=== PATIENT | male | born 1965 | race Caucasian/White ===

== ENCOUNTER 2020-12-03 14:58 | Emergency (ER) | payer BC ==
[~2020-12-03] VITALS: Ht 177.8 cm; Wt 80.3 kg
--- NOTE | 2020-12-03 15:25 | NUR ---
Dr Ernandez at bedside. COVID swab sent. Pt aware of plan of care.
--- NOTE | 2020-12-03 16:05 | NUR ---
Pt on monitor. Complains of cold room, provided with warm blankets.
[2020-12-03] MEDS ORDERED: ACETAMINOPHEN 500 MG TABLET ONE (16:44)
--- NOTE | 2020-12-03 16:50 | NUR ---
Pateint up to bathroom with even steady gait.
[2020-12-03] MEDS ORDERED: BAMLANIVIMAB 700 MG in SODIUM CHLORIDE 0.9% 250 ML IVPB ONE (17:00)
[2020-12-03] MEDS ORDERED: FILTER 0.22 MICRON IV ONE (17:00)
--- NOTE | 2020-12-03 17:23 | NUR ---
Started Bamlamivanbab. pt tolerating well.
--- NOTE | 2020-12-03 17:27 | NUR ---
Myself at bedside with 1:1 patient care with antibody infusion.
[2020-12-03] MEDS ORDERED: DEXAMETHASONE 4 MG/ML, 1ML IVPush ONE (17:30)
[2020-12-03] MEDS ORDERED: ACETAMINOPHEN 325 MG TABLET PO ONE (17:30)
--- NOTE | 2020-12-03 18:02 | NUR ---
Patient tolertaing treatment well. Dr. Ernandez at bedside.
[2020-12-03] MEDS ORDERED: DEXAMETHASONE 4 MG/ML, 1ML ONE (18:07)
--- NOTE | 2020-12-03 18:31 | NUR ---
Infusion has finished. Pt tolerated well. pt on monitor.
[2020-12-03] MEDS ORDERED: DOXYCYCLINE 100MG TABLET PO ONE (19:00)
--- NOTE | 2020-12-03 19:00 | NUR ---
PT SUPINE ON MARIA ELENA ROMERO. PT DENIES ANY NEEDS AT THIS TIME. CALL LIGHT AND PERSONAL BELONGINGS WITHIN REACH.
--- NOTE | 2020-12-03 19:04 | NUR ---
BEDSIDE REPORT RECEIVED FROM ROSALIA HARMON
[2020-12-03] MEDS ORDERED: DOXYCYCLINE 100MG TABLET ONE (19:17)
[2020-12-03 19:21] VITALS: BP 158/89
--- NOTE | 2020-12-03 20:07 | NUR ---
Patient given discharge instructions and they have confirmed that they understand the instructions. Patient ambulatory with steady gait.
== END 2020-12-03 20:14 | disposition home or self-care (01) ==
LOC: ED 16:15
DX: U07.1 COVID-19 (principal); J18.9 Pneumonia, unspecified organism; R05 Cough; R50.9 Fever, unspecified; M79.10 Myalgia, unspecified site; R51.9 Headache, unspecified; R06.02 Shortness of breath; R07.89 Other chest pain; R43.8 Other disturbances of smell and taste; Z88.0 Allergy status to penicillin; Z85.46 Personal history of malignant neoplasm of prostate
CPT/HCPCS: 71045; 87635; 93005; 96374; 99285; J1100; J7050; M0239; Q0239